=== PATIENT | female | born 1995 | race Caucasian/White ===

== ENCOUNTER 2022-05-30 10:22 | Emergency (ER) | payer OTHER ==
[~2022-05-30] VITALS: Ht 167.6 cm; Wt 104.5 kg
[2022-05-30] MEDS ORDERED: ALBU8HFA IH (10:36)
[2022-05-30] MEDS ORDERED: TraMADol HCL 50 MG TABLET PO ONE (12:45)
[2022-05-30] MEDS ORDERED: PENICILLIN V POTASSIUM 500 MG TABLET PO ONE (12:45)
[2022-05-30] MEDS ORDERED: TRAM-559 PO (12:54)
[2022-05-30] MEDS ORDERED: PENI500T2 PO (12:54)
[2022-05-30 13:02] VITALS: BP 152/94
== END 2022-05-30 15:17 | disposition home or self-care (01) ==
LOC: EMS 10:27
DX: K02.9 Dental caries, unspecified (principal); K04.7 Periapical abscess without sinus; J45.909 Unspecified asthma, uncomplicated; M54.9 Dorsalgia, unspecified
CPT/HCPCS: 93005; 99283

== ENCOUNTER 2022-10-06 02:34 | Emergency (ER) | payer OTHER ==
[~2022-10-06] VITALS: Ht 170.2 cm; Wt 104.0 kg
[~2022-10-06 02:34] MED LIST: ALBU8HFA IH; PENI500T2 PO; TRAM-559 PO
[2022-10-06 03:10] LABS: BASOPHILS % (AUTO) 0.5 % (0.0-2.0); EOSINOPHILS % (AUTO) 1.3 % (1.0-6.0); HEMATOCRIT 36.4 % (36-46); HEMOGLOBIN 12.3 g/dL (12.0-16.0); LYMPHOCYTES # (AUTO) 4.4 K/uL (1.0-4.8); LYMPHOCYTES % (AUTO) 38.1 % (22.0-44.0); MEAN CORPUSCULAR HEMOGLOBIN 31.3 pg (26.0-34.0); MEAN CORPUSCULAR HGB CONC 33.7 G/dL (31.0-37.0); MEAN CORPUSCULAR VOLUME 93 fL (80-100); MONOCYTES # (AUTO) 0.5 K/uL (0.1-1.0); NEUTROPHILS # (AUTO) 6.5 K/uL (1.8-7.7); NEUTROPHILS % (AUTO) 56.1 % (40.0-70.0); PLATELET COUNT (AUTO) 331 K/uL (150-450); RED BLOOD CELL COUNT(AUTO) 3.92 MIL/uL (4.00-5.20); RED CELL DISTRIBUTION WIDTH 12.3 % (11.5-14.5)
[2022-10-06] MEDS ORDERED: FAMOTIDINE 10 MG/ML 2 ML VIAL IVP ONE (03:15)
[2022-10-06] MEDS ORDERED: ACETAMINOPHEN 500 MG TABLET PO ONE (03:15)
[2022-10-06] MEDS ORDERED: MAG HYDROX/AL HYDROX/SIMETH 30 ML SUSP UDCUP PO ONE (03:15)
[2022-10-06 03:34] LABS: ANION GAP 7 mmol/L (8-16); CALCIUM, TOTAL 9.3 mg/dL (8.8-10.5); CARBON DIOXIDE 30 mmol/L (22-29); CHLORIDE 104 mmol/L (98-107); CREATININE 0.92 mg/dL (0.60-1.30); GLOMERULAR FILTR. RATE CALC > 60 mL/min (>60); GLUCOSE,RANDOM 106 mg/dL (70-110); POTASSIUM 4.1 mmol/L (3.5-5.1); SODIUM SERUM 141 mmol/L (136-145); UREA NITROGEN, BLOOD 14 mg/dL (7-18)
[2022-10-06 03:42] LABS: ALANINE AMINOTRANSFERASE 33 U/L (12-78); ALKALINE PHOSPHATASE 68 U/L (46-116); ASPARTATE AMINOTRANSFERASE 21 U/L (15-37); BILIRUBIN,TOTAL 0.4 mg/dL (0.1-1.0); CREATINE KINASE, TOTAL ONLY 36 U/L (26-192); HCG,QUANTITATIVE < 1 mIU/mL (0-6); TOTAL PROTEIN, SERUM 8.4 g/dL (6.4-8.2)
[2022-10-06] MEDS ORDERED: IOHEXOL 350 MG/ML 100 ML VIAL ONE (03:42)
[2022-10-06] MEDS ORDERED: SODIUM CHLORIDE 0.9% 100 ML ONE (03:42)
[2022-10-06 04:44] LABS: B-TYPE NATRIURETIC PEPTIDE < 5 pg/mL (0-100)
[2022-10-06 05:00] VITALS: BP 124/74
== END 2022-10-06 06:22 | disposition home or self-care (01) ==
LOC: EMS 02:36
DX: R07.2 Precordial pain (principal); J45.909 Unspecified asthma, uncomplicated
CPT/HCPCS: 99285; 71260; 96374; 71045; 80053; 82550; 83880; 84484; 84702; 85025; 85379; 36415; 72193; 74160; 93005; J3490; Q9967; J7050

== ENCOUNTER 2025-07-21 12:32 | Emergency (ER) | payer OTHER ==
[~2025-07-21] VITALS: Ht 170.2 cm; Wt 93.2 kg
[~2025-07-21 12:32] MED LIST changes: +ALBU18HF12 IH; -ALBU8HFA IH; -TRAM-559 PO; +TRAM50TA5 PO
[2025-07-21 12:45] VITALS: TEMP 98.6
[2025-07-21 14:00] LABS: PLATELET COUNT (AUTO) 347 K/uL (150-450); RED BLOOD CELL COUNT(AUTO) 4.34 MIL/uL (4.00-5.20); RED CELL DISTRIBUTION WIDTH 13.1 % (11.5-14.5); WHITE BLOOD COUNT (AUTO) 9.7 K/uL (4.5-11.0)
[2025-07-21 14:12] LABS: CALCIUM, TOTAL 9.0 mg/dL (8.8-10.5); CREATININE 0.68 mg/dL (0.60-1.30); GLOMERULAR FILTR. RATE CALC > 60 mL/min (>60); GLUCOSE,RANDOM 113 mg/dL (70-110); SODIUM SERUM 141 mmol/L (136-145); UREA NITROGEN, BLOOD 7 mg/dL (7-18)
[2025-07-21 14:19] LABS: ASPARTATE AMINOTRANSFERASE 20.0 U/L (15-37); TOTAL PROTEIN, SERUM 7.9 g/dL (6.4-8.2)
[2025-07-21] MEDS ORDERED: PRED-554 PO (15:06)
[2025-07-21] MEDS ORDERED: CETI10TA77 PO (15:06)
[2025-07-21 16:15] VITALS: BP 120/88; PULSE 70; RESP 15; O2SAT 98
[2025-07-21 16:16] LABS: APPEARANCE,URINE CLEAR (CLEAR); GLUCOSE, URINE (UA) NEGATIVE (NEGATIVE); LEUKOCYTE ESTERASE ,URINE SMALL (NEGATIVE); NITRATE,URINE NEGATIVE (NEGATIVE); OCCULT BLOOD,URINE NEGATIVE (NEGATIVE); SPECIFIC GRAVITIY, URINE 1.018 (1.003-1.030)
[2025-07-21 16:19] LABS: HCG,QUAL URINE NEGATIVE (NEGATIVE)
[2025-07-21 16:32] LABS: SQUAMOUS EPITHELIAL CELL,UR Rare /LPF (None Seen)
== END 2025-07-21 16:59 | disposition home or self-care (01) ==
LOC: EMS 12:32
DX: L23.9 Allergic contact dermatitis, unspecified cause (principal); J45.909 Unspecified asthma, uncomplicated; Z79.899 Other long term (current) drug therapy
CPT/HCPCS: 99283; 80048; 80076; 81001; 84703; 85025; 36415; J7512